=== PATIENT | female | born 1930 | race Caucasian/White ===

== ENCOUNTER → 2016-04-20 | Outpatient (CLI) | payer BC ==
[~2016-04-20] MED LIST: ALLO100T PO; AMLO-110 PO; CALCTAB5 PO; CELE100C PO; GABA1CAP PO; LEVO50TA PO; LEVO75TA PO; LORA-741 PO; MAGN400T5 PO; OMEP20CA9 PO; POTA20TA16 PO; TRIATAB3 PO
[2016-04-20 16:50] LABS: BASO % 0.1 %; BASO ABS # 0.01 K/uL (0-0.2); COMPLETE YES; EOS % 2.2 %; IG% 0.1 %; LYMPH % 31.6 %; LYMPH ABS # 2.11 K/uL (1.2-3.4); MEAN CELL VOLUME 92.6 fL (80-100); MEAN CORPUSCULAR HEMOGLOBIN 32.6 pg (25-34); MEAN CORPUSCULAR HGB CONC 35.2 g/dl (32-36); MONO % 8.7 %; NEUT % 57.3 %; PLATELET COUNT 292 K/uL (130-400); RED BLOOD COUNT 4.97 M/uL (4.2-5.4); WHITE BLOOD COUNT 6.68 K/uL (4.8-10.8)
[2016-04-20 16:59] LABS: ALT/SGPT 28 U/L (12-78); BLOOD UREA NITROGEN 39 mg/dl (7-18); BUN/CREATININE RATIO 27.9 (10-20); CALCIUM 9.5 mg/dl (8.5-10.1); CARBON DIOXIDE 29 mmol/L (21-32); CHLORIDE 100 mmol/L (98-107); GLUCOSE 106 mg/dl (70-99); POTASSIUM 3.6 mmol/L (3.5-5.1); SODIUM 141 mmol/L (136-145); URIC ACID 4.9 mg/dl (2.6-7.2)
[2016-04-20 17:10] LABS: ALB/GLOB RATIO 1.1 (0.9-2); ALKALINE PHOSPHATASE 107 U/L (45-117); AST/SGOT 25 U/L (15-37)
== END | disposition home or self-care (01) ==
LOC: C.LABBC 11:26
PROVIDERS: ATTEND Internal Medicine
DX: N18.3 Chronic kidney disease, stage 3 (moderate) (principal); E03.9 Hypothyroidism, unspecified; M10.9 Gout, unspecified

== ENCOUNTER → 2016-09-12 | Outpatient (CLI) | payer BC ==
[2016-09-12 10:53] LABS: HEMATOCRIT 44.9 % (37-47); MEAN CELL VOLUME 93.5 fL (80-100); MEAN CORPUSCULAR HEMOGLOBIN 32.7 pg (25-34); MEAN PLATELET VOLUME 11.5 fL (7.4-10.4); PLATELET COUNT 275 K/uL (130-400); WHITE BLOOD COUNT 5.51 K/uL (4.8-10.8)
[2016-09-12 11:38] LABS: ALT/SGPT 28 U/L (12-78); AST/SGOT 25 U/L (15-37); BLOOD UREA NITROGEN 31 mg/dl (7-18); BUN/CREATININE RATIO 22.1 (10-20); CALCIUM 9.2 mg/dl (8.5-10.1); CARBON DIOXIDE 30 mmol/L (21-32); CHLORIDE 102 mmol/L (98-107); GLUCOSE 99 mg/dl (70-99); POTASSIUM 3.8 mmol/L (3.5-5.1); SODIUM 139 mmol/L (136-145)
[2016-09-12 11:50] LABS: CHOLESTEROL 250 mg/dl (0-200); CHOLESTEROL/HDL RATIO 3.1; HDL CHOLESTEROL 81 mg/dl; LDL CHOLESTEROL CALCULATED 135 mg/dl; TRIGLYCERIDES 169 mg/dl (0-150); VERY LOW DENSITY LIPOPROT CALC 34 mg/dl
--- NOTE | 2016-09-18 11:30 | CODING QUERY MEDICAL NECESSITY ---
SUPPORTING DIAGNOSIS NEEDED Dr. Wiley, A supporting diagnosis is required for the test/procedure performed on this patient in order for us to be reimbursed by the patient's insurance. Please provide a supporting diagnosis for the following test/procedure listed below next to the test name along with your signature. *If there is no additional diagnosis for this patient that would support the following test/procedure please document that below next to the test/procedure. Test(s)/Procedure(s) that require a supporting diagnosis: * ([id number]) B12 VITAMIN LEVEL DIAGNOSIS: DATE OF SERVICE: 09/12/16 Provider Signature: Date: Thank you Christopher Ortiz [facility] Information Management Once completed, please kindly fax back to [phone] For questions please call [phone]
== END | disposition home or self-care (01) ==
LOC: C.LABBC 08:59
PROVIDERS: ATTEND Internal Medicine
DX: E78.5 Hyperlipidemia, unspecified (principal); E83.42 Hypomagnesemia; E03.9 Hypothyroidism, unspecified; G62.9 Polyneuropathy, unspecified; N18.3 Chronic kidney disease, stage 3 (moderate)

== ENCOUNTER → 2016-10-31 | Outpatient (CLI) | payer BC ==
--- NOTE | 2016-10-31 15:44 | MAMMOGRAPHY REPORT ---
BILATERAL DIGITAL SCREENING MAMMOGRAM WITH CAD: 10/31/2016 CLINICAL HISTORY: Routine screening. Patient has no complaints. TECHNIQUE: Bilateral CC and MLO views were obtained. Current study was also evaluated with a Compute r Aided Detection (CAD) system. COMPARISON: Comparison is made to exams dated: 06/21/2015 mammogram, 10/05/2014 mammogram, 03/23/2014 ma mmogram, 09/18/2013 mammogram, 03/27/2013 mammogram, and 03/19/2013 mammogram - [facility] nter. BREAST COMPOSITION: There are scattered areas of fibroglandular density in both breasts. FINDINGS: There is a focal area of architectural distortion in the 11:30 to 12:00 right breast, whic h appears stable on all available prior mammograms dating back to at least 12/04/2007, likely represe nting an area of prior surgery. 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 Although they are slightly increased comparing to more remote mammograms, there are stable compared to last years mammograms. No new suspicious grouping or cluster of microcalcifications is currently seen. No obvious new mass or unexpected architectural distortion. IMPRESSION: ACR BI-RADS CATEGORY 2: BENIGN There is no mammographic evidence of malignancy. A 1 year screening mammogram is recommended. The pa tient will receive written notification of the results. Approximately 10% of breast cancers are not detected with mammography. A negative mammographic report should not delay biopsy if a clinically suggestive mass is present. Olya Cazares M.D. ay/:10/31/2016 14:26:58 Plastic Maker: Simran MEDINA(R)(M)(BD), [facility] letter sent: Normal 1/2 BI-RADS Code: ACR BI-RADS Category 2: Benign
== END | disposition home or self-care (01) ==
LOC: C.MAMM 11:24
PROVIDERS: ATTEND Internal Medicine
DX: Z12.31 Encounter for screening mammogram for malignant neoplasm of breast (principal)

== ENCOUNTER → 2017-01-28 | Outpatient (CLI) | payer BC ==
[2017-01-28 13:25] LABS: BASO % 0.6 %; BASO ABS # 0.04 K/uL (0-0.2); COMPLETE YES; EOS % 3.4 %; HEMATOCRIT 44.9 % (37-47); IG% 0.3 %; LYMPH % 34.5 %; LYMPH ABS # 2.46 K/uL (1.2-3.4); MEAN CORPUSCULAR HEMOGLOBIN 33.5 pg (25-34); MEAN CORPUSCULAR HGB CONC 36.1 g/dl (32-36); MEAN PLATELET VOLUME 11.2 fL (7.4-10.4); MONO % 9.4 %; NEUT % 51.8 %; PLATELET COUNT 332 K/uL (130-400); RED BLOOD COUNT 4.83 M/uL (4.2-5.4); WHITE BLOOD COUNT 7.14 K/uL (4.8-10.8)
[2017-01-28 16:19] LABS: ALT/SGPT 31 U/L (12-78); AST/SGOT 28 U/L (15-37); BLOOD UREA NITROGEN 36 mg/dl (7-18); BUN/CREATININE RATIO 25.9 (10-20); CALCIUM 9.5 mg/dl (8.5-10.1); CARBON DIOXIDE 28 mmol/L (21-32); CHLORIDE 101 mmol/L (98-107); GLUCOSE 106 mg/dl (70-99); POTASSIUM 3.5 mmol/L (3.5-5.1); SODIUM 138 mmol/L (136-145)
[2017-01-28 16:22] LABS: ALKALINE PHOSPHATASE 110 U/L (45-117)
== END | disposition home or self-care (01) ==
LOC: C.LABBC 10:50
PROVIDERS: ATTEND Internal Medicine
DX: N18.3 Chronic kidney disease, stage 3 (moderate) (principal)

== ENCOUNTER → 2017-08-01 | Outpatient (CLI) | payer BC ==
[~2017-08-01] MED LIST changes: +GABA100C13 PO; -GABA1CAP PO; +POTA-639 PO; -POTA20TA16 PO
[2017-08-01 10:40] LABS: HEMATOCRIT 45.9 % (37-47); MEAN CELL VOLUME 93.5 fL (80-100); MEAN CORPUSCULAR HEMOGLOBIN 32.6 pg (25-34); MEAN CORPUSCULAR HGB CONC 34.9 g/dl (32-36); MEAN PLATELET VOLUME 11.5 fL (7.4-10.4); PLATELET COUNT 253 K/uL (130-400); RED CELL DISTRIBUTION WIDTH CV 14.6 % (11.5-14.5); WHITE BLOOD COUNT 6.74 K/uL (4.8-10.8)
[2017-08-01 10:50] LABS: ALBUMIN 3.8 gm/dl (3.4-5.0); ALT/SGPT 29 U/L (12-78); AST/SGOT 24 U/L (15-37); BLOOD UREA NITROGEN 31 mg/dl (7-18); CALCIUM 9.3 mg/dl (8.5-10.1); CARBON DIOXIDE 32 mmol/L (21-32); CHOLESTEROL 212 mg/dl (0-200); CREATININE 1.54 mg/dl (0.60-1.20); GLUCOSE 105 mg/dl (70-99); POTASSIUM 3.4 mmol/L (3.5-5.1); SODIUM 138 mmol/L (136-145)
[2017-08-01 11:00] LABS: ALKALINE PHOSPHATASE 106 U/L (45-117); LDL CHOLESTEROL CALCULATED 105 mg/dl; TOTAL PROTEIN 7.5 gm/dl (6.4-8.2)
== END | disposition home or self-care (01) ==
LOC: C.LABBC 08:49
PROVIDERS: ATTEND Internal Medicine
DX: N18.3 Chronic kidney disease, stage 3 (moderate) (principal); E03.9 Hypothyroidism, unspecified; E78.5 Hyperlipidemia, unspecified; E83.42 Hypomagnesemia

== ENCOUNTER → 2017-11-01 | Outpatient (CLI) | payer BC ==
[~2017-11-01] MED LIST changes: -AMLO-110 PO; +AMLO5TAB3 PO; +GABA-1693 PO; -GABA100C13 PO
--- NOTE | 2017-11-04 07:43 | MAMMOGRAPHY REPORT ---
BILATERAL DIGITAL SCREENING MAMMOGRAM TOMOSYNTHESIS WITH CAD: 11/01/2017 CLINICAL HISTORY: Routine screening. Patient has no complaints. TECHNIQUE: The study was acquired using full field digital technology and interpreted from soft copy. Breast tomosynthesis in addition to standard 2D mammography was performed. Current study was also ev aluated with a Computer Aided Detection (CAD) system. COMPARISON: Comparison is made to exams dated: 10/31/2016 mammogram, 06/21/2015 mammogram, 10/05/2014 ma mmogram, 03/23/2014 mammogram, 09/18/2013 mammogram, and 03/27/2013 mammogram - [facility]ter. BREAST COMPOSITION: There are scattered areas of fibroglandular density in both breasts. FINDINGS: No suspicious masses, calcifications, or areas of architectural distortion are noted in either breast . There has been no significant interval change compared to prior exams. There is stable postsurgica l architectural distortion in the right lateral breast, stable dating back to at least the 2007 exam. Bilateral benign-appearing calcifications and bilateral asymmetries are not significantly changed. IMPRESSION: BIRADS CATEGORY 2: BENIGN There is no mammographic evidence of malignancy. A 1 year screening mammogram is recommended.( 019) The patient will receive written notification of the results. Some breast cancers are not detected with mammography. A negative mammographic report should not sumaya y biopsy if a clinically suggestive mass is present. Karis Story M.D. /:11/01/2017 13:42:44 Chronic Specialist: RT Pierre(Norris)(Armen)(BD), [facility] letter sent: Normal 1/2 BI-RADS Code: ACR BI-RADS Category 2: Benign
== END | disposition home or self-care (01) ==
LOC: C.MAMM 11:18
PROVIDERS: ATTEND Internal Medicine
DX: Z12.31 Encounter for screening mammogram for malignant neoplasm of breast (principal)

== ENCOUNTER 2020-01-12 08:42 | Observation (INO) ==
--- NOTE | 2019-12-25 13:48 | PAT Medication Instructions ---
Medication Instructions Date of Service December 25, 2019 Home Medications Medication Instructions Recorded potassium chloride 20 mEq 20 meq PO BID #180 tab 09/24/19 tablet,extended release calcium carbonate 500 mg calcium (1,250 mg) tablet 500 mg PO QAM cholecalciferol (vitamin D3) 25 mcg (1,000 unit) capsule 1,000 units PO QAM magnesium oxide 400 mg PO QAM potassium chloride 20 mEq tablet,extended release 20 meq PO BID allopurinol 200 mg PO QPM amlodipine 10 mg PO QAM levothyroxine 75 mcg PO QAM omeprazole 20 mg PO QAM PRN psyllium husk [Metamucil] 1 tbsp PO DAILY PRN triamterene-hydrochlorothiazid 1 cap PO QAM DO NOT take the morning of surgery calcium carbonate 500 mg calcium (1,250 mg) tablet 500 mg PO QAM cholecalciferol (vitamin D3) 25 mcg (1,000 unit) capsule 1,000 units PO QAM magnesium oxide 400 mg PO QAM potassium chloride 20 mEq tablet,extended release 20 meq PO BID psyllium husk [Metamucil] 1 tbsp PO DAILY PRN triamterene-hydrochlorothiazid 1 cap PO QAM Take morning of surgery With a small sip of water, OTHERWISE NOTHING TO EAT OR DRINK AFTER MIDNIGHT: amlodipine 10 mg PO QAM levothyroxine 75 mcg PO QAM omeprazole 20 mg PO QAM PRN (if needed) Take evening before surgery potassium chloride 20 mEq tablet,extended release 20 meq PO BID allopurinol 200 mg PO QPM psyllium husk [Metamucil] 1 tbsp PO DAILY PRN (if needed) Other Notes If you have any questions please call us at [phone] or [phone] or [phone] or [phone]
--- NOTE | 2019-12-28 14:05 | Anesthesiology Consultation ---
Date of Service December 28, 2019 Assessment & Plan (1) Encounter for pre-operative examination: - Hx CKD: known hx of CKD stage III. Preop labs with creatinine 1.78 (GFR 25.0). Creatinine appears worsened from baseline. Labs forwarded to PCP. Per PCP response 12/28/19, PCP will recheck BMP next week. Awaiting repeat labs ([facility]). - Preop EKG: ST with frequent PVCs/septal infarct. Appears similar to previous EKG 2013. No available/recent echo/stress test. Will arrange preop cardiology evaluation. - Per assessment on 12/27: Uses PPE. Travel screen- Son will be visiting from prior to surgery (from [place], [place]). Advised patient to check prior to his travel that [place] is not a travel restricted states from [place] and to follow COVID precaution guidelines. No COVID-19 positive contacts or current COVID-19 related symptoms. Surgeon arranging preop COVID testing (scheduled 01/06; [facility]). Awaiting results. Chart Review Chart Review: Patient seen in Pre Admission Testing Teaching & Discussion Pre-Anesthesia Teaching/Discussion Notes: Instructed NPO after midnight before surgery,except medications with 15 cc of water. Medication instructions provided according to the PAT guidelines. History Surgery Operation Date: 01/12/20 09:00 Proposed Procedures p Right Total Knee Arthroplasty - Cristian Lomas MD Height/Weight Height: 5 ft 2.5 in Weight: 60.6 kg Allergies Allergy/AdvReac Type Severity Reaction Status Date / Time oxycodone Allergy Intermediate mouth Verified 12/28/19 16:02 soreness, extreme dry mouth NSAIDS (Non-Steroidal AdvReac Severe decreased Verified 12/28/19 16:02 Anti-Inflamma kidney function celecoxib [From Celebrex] AdvReac decreased Verified 12/28/19 16:02 kidney function cephalexin [From Keflex] AdvReac dry Mucus Verified 12/28/19 16:02 Membranes Stargazer azucena Allergy Severe Uncoded 12/25/19 11:57 ACCUPRINE Allergy Intermediate rash Uncoded 12/28/19 16:02 Medications Home Medications Medication Instructions Recorded Confirmed Last Taken calcium carbonate 500 mg calcium 500 mg PO QAM tab 12/12/18 12/25/19 03/06/19 (1,250 mg) tablet cholecalciferol (vitamin D3) 25 1,000 units PO QAM cap 12/16/18 12/25/19 03/06/19 mcg (1,000 unit) capsule magnesium oxide 400 mg PO QAM 03/03/19 12/25/19 03/06/19 potassium chloride 20 mEq 20 meq PO BID #180 tab 09/24/19 12/25/19 Unknown tablet,extended release allopurinol 200 mg PO QPM 12/25/19 12/25/19 Unknown amlodipine 10 mg PO QAM 12/25/19 12/25/19 Unknown levothyroxine 75 mcg PO QAM 12/25/19 12/25/19 Unknown omeprazole 20 mg PO QAM PRN 12/25/19 12/25/19 Unknown psyllium husk [Metamucil] 1 tbsp PO DAILY PRN 12/25/19 12/25/19 Unknown triamterene-hydrochlorothiazid 1 cap PO QAM 12/25/19 12/25/19 Unknown Past Medical History Medical History Anxiety GERD (gastroesophageal reflux disease) controlled Gout H/O esophageal spasm History of squamous cell carcinoma Hyperlipidemia Hypertension + white coat HTN Hypothyroidism Osteoarthritis Osteopenia Peripheral neuropathy Spinal stenosis Stage III chronic kidney disease with flutuating creatinine Exercise / Class Metabolic Activity II 4-5 Yardwork/Stairs/Walk up hill (one flight of stairs (no chest pain, no sob)) Past Family History Family History Brother Diabetes Father Myocardial infarction Mother Skin cancer Sister Stroke syndrome Cancer Other No family history of adverse response to anesthesia Denies family history of Ovarian cancer Breast cancer Congenital kidney disease Past Surgical History Surgical History H/O breast biopsy H/O colonoscopy H/O dilation and curettage H/O neck surgery ROM WNL H/O oral surgery History of ankle surgery Rt History of cardiac cath 1998 - abn stress test - [facility] - no stents/angioplasty History of cataract surgery History of colonoscopy History of Mohs micrographic surgery for skin cancer History of repair of rotator cuff Rt History of 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 Physical Exam Vital Signs VITALS BP 147/66 P 102 TEMP 98.4 SP02 96%RA RESP 18 PHYSICAL Full neck and c-spine range of motion. Full TMJ range of motion. TMD 2.5 finger breaths Mallampati Score 1 Dentition: intact, + several crowns Lungs: clear throughout to auscultation Cardiac: regular rate, irregular rhythm, no murmurs noted Spine: normal Carotid arteries: negative bruit Extremities: left ankle non-pitting edema s/p left ankle surgery (chronic) Testing Laboratory Results 12/28/19 14:25 12/28/19 14: PT 10.5 Seconds (9.0-12.0) 12/28/19 14: INR 1.0 (0.9-1.1) 12/28/19 14: APTT 28.1 Seconds (21.0-31.0) 12/28/19 14:25 Blood Type O Negative 12/28/19 14: Antibody Screen NEGATIVE 12/28/19 14:25 Electrocardiogram Date: 12/28/19 ST with frequent PVC's at 112bpm. SELINA. Septal infarct, age undetermined. unconfirmed report. Of note, 01/29/[address] [facility] [address] at 116bpm with frequent PVC's and fusion complexes + septal infarct. Chest X-Ray Date: 12/28/19 FINDINGS: Unchanged mild interstitial coarsening. Cardiomediastinal and hilar silhouettes are within normal limits. Calcified plaque of the thoracic aortic arch. No pneumothorax, pleural effusion, airspace consolidation or overt pulmonary edema. Mild hyperinflation with diaphragmatic flattening. Degenerative changes of the shoulders and spine. Round peripherally sclerotic lucencies of the right humeral head suggestive of prior hardware removal. IMPRESSION: No acute process.
--- NOTE | 2019-12-28 15:00 | XRay Report ---
XR chest Pre-admission PA/Lat HISTORY: 89 years-old Female pat preoperative exam. No acute chest complaints COMPARISON: Chest radiographs 06/29/2013 TECHNIQUE: PA and lateral views of the chest FINDINGS: Unchanged mild interstitial coarsening. Cardiomediastinal and hilar silhouettes are within normal mott its. Calcified plaque of the thoracic aortic arch. No pneumothorax, pleural effusion, airspace consol idation or overt pulmonary edema. Mild hyperinflation with diaphragmatic flattening. Degenerative bradly nges of the shoulders and spine. Round peripherally sclerotic lucencies of the right humeral head sug gestive of prior hardware removal. IMPRESSION: No acute process. ACT 112: Negative or not required by law. The above report was generated using voice recognition software. It may contain grammatical, syntax o r spelling errors. Electronically signed by: Vasiliy Smart M.D. 12/28/2019 2:59 PM
[2019-12-28 15:49] LABS: Basophils # (auto) 0.02 K/uL (0-0.2); Basophils % (auto) 0.2 %; Eosinophils # (auto) 0.06 K/uL (0-0.5); Eosinophils % (auto) 0.6 %; Hematocrit (blood only) 44.3 % (37-47); Hemoglobin 15.7 g/dL (12.0-16.0); Immature Granulocytes # (auto) 0.02 K/uL (0.00-0.02); Immature Granulocytes % (auto) 0.2 %; Lymphocytes # (auto) 2.38 K/uL (1.2-3.4); Lymphocytes % (auto) 23.4 %; Mean Corpuscular Hemoglobin 32.8 pg (25-34); Mean Corpuscular Hgb Conc 35.4 g/dL (32-36); Mean Corpuscular Volume 92.5 fL (80-100); Mean Platelet Volume 12.1 fL (7.4-10.4); Monocytes % (auto) 6.9 %; Neutrophils # (auto) 6.99 K/uL (1.4-6.5); Neutrophils % (auto) 68.7 %; Platelet Count 339 K/uL (130-400); RDW Coefficient of Variation 13.9 % (11.5-14.5); Red Blood Count 4.79 M/uL (4.2-5.4); White Blood Count 10.17 K/uL (4.8-10.8)
[2019-12-28 16:01] LABS: BUN Creatinine Ratio 21.1 (10-20); Creatinine Clr Calc Pharmacy 17.7 ml/min; Potassium 3.7 mmol/L (3.5-5.1)
[2019-12-28 16:05] LABS: Partial Thromboplastin Time 28.1 Seconds (21.0-31.0); Prothrombin Time 10.5 Seconds (9.0-12.0)
--- NOTE | 2019-12-29 15:05 | Electrocardiogram Report ---
Test Reason : Blood Pressure : / mmHG Vent. Rate : 112 BPM Atrial Rate : 112 BPM P-R Int : 178 ms QRS Dur : 080 ms QT Int : 350 ms P-R-T Axes : 077 009 071 degrees QTc Int : 477 ms Sinus tachycardia with frequent Premature ventricular complexes Fusion complexes Right atrial enlargement Septal infarct , age undetermined Abnormal ECG When compared with ECG of 27-JUN-2018 14:04, Septal infarct is now Present Confirmed by Noe Tadeo ([id number]) on 12/29/2019 3:04:46 PM Referred By: Cristian Lomas Confirmed By:Noe Tadeo
--- NOTE | 2020-01-09 14:54 | History and Physical Report ---
DATE OF ADMISSION: 01/12/2020 CHIEF COMPLAINT: Right knee pain, discomfort and swelling. HISTORY OF PRESENT ILLNESS: The patient is an 89-year-old fairly active, independent female who was referred to me by my partner, Dr. Daily, for treatment of her right knee. She has about a year history of gradually and progressively increasing right knee pain and discomfort that dates back to a fall. This was about a year or so ago. Since then, she has got progressive pain, discomfort and swelling in her knee that has been unresponsive to conservative care. She has had a couple of courses of physical therapy as well as aspirations and injections, which do not seem to help much. She has been using a cane to get around due to the pain. She feels like her knee is unstable. She is having difficulty maintaining an active lifestyle and would like to have her knee fixed. PAST MEDICAL HISTORY: Significant for, 1. Unspecified nondiabetic neuropathy. 2. Hypothyroidism. 3. Hypertension. 4. Elevated cholesterol. 5. Chronic underlying kidney disease with baseline creatinine about 1.7. 6. Vitamin D deficiency. PAST SURGICAL HISTORY: Includes, 1. Breast biopsy. 2. Colonoscopy. 3. Oral surgery. 4. Neck surgery. 5. Ankle surgery. 6. Cataract surgery. 7. Tonsillectomy. 8. Shoulder surgery. ALLERGIES: OXYCODONE, WHICH CAUSES MOUTH DRYNESS. ALSO, REPORTS AN NSAID ALLERGY, BUT IT IS DUE TO HER IMPAIRED RENAL FUNCTION. SHE REPORTS AN ALLERGY TO CEPHALEXIN, WHICH CAUSES DRY MUCOUS MEMBRANES. CURRENT MEDICINES: Include, 1. Allopurinol. 2. Amlodipine. 3. Calcium carbonate. 4. Vitamin D3. 5. Kenalog. 6. Levothyroxine. 7. Magnesium oxide. 8. Omeprazole. 9. Potassium chloride. 10. Triamterene/hydrochlorothiazide. SOCIAL HISTORY: Significant for an 89-year-old female. She is quite active. She does not smoke. Rare alcohol intake. FAMILY HISTORY: Noncontributory. REVIEW OF SYSTEMS: Negative for diabetes. Denies any current chest pain or shortness of breath. No history of DVT or PE. She does have some underlying renal dysfunction. She did recently just have a stress test, which the results are pending. PHYSICAL EXAMINATION: GENERAL: Shows a pleasant elderly female. Looks to be in excellent health. HEENT: Benign. NECK: Supple, no lymphadenopathy. LUNGS: Clear to auscultation. HEART: Has a regular rate and rhythm. ABDOMEN: Soft, nontender, nondistended. EXTREMITIES: Grossly neurovascularly intact except as follows: Examination of the right knee reveals the patient walks with the use of a cane. She has got a fairly large knee joint effusion. She has got valgus alignment to her knee, which is increased with weightbearing. Range of motion about 5 degrees short of full extension to 120 degrees of flexion. There is no instability. No pain with hip motion. X-RAYS: X-rays of the right knee were reviewed from previously. It shows advanced right knee lateral compartment DJD. She has got complete loss of her lateral joint space. 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 She has failed all conservative measures and would like to have her knee fixed. PLAN: We talked about treatment options. We are going to proceed with right total knee replacement. The risks and benefits of this procedure were explained to the patient including but not limited to DVT, PE, , infection, neurological injury, vascular injury, bleeding problems, pain, limited range of motion, stiffness, failure to relieve her symptoms, incomplete relief of symptoms, need for further surgery in the future, fracture, leg length inequality, nerve palsy, persistent pain, etc. The patient understands and desires to proceed. Informed consent was obtained. As far as DVT prophylaxis, we will use TEDs and a baby aspirin twice a day. We will have to hold all other NSAIDs due to her renal dysfunction. She is hoping to be discharged to home with some home health and her son and family are going to be helping to take care of her for the first couple of weeks.
[2020-01-10 03:46] LABS: SARS CoV2 RNA (COVID-19) NOT DETECTED (NOT DETECTED)
[~2020-01-12 08:42] MED LIST changes: +ACETAMINOPHEN 500 MG TAB PO SCH; -ALLO100T PO; -AMLO5TAB3 PO; +BUPIVACAINE 0.5 % 5 MG/1 ML PF 10ML VIAL ONE; +BUPIVACAINE LIPOSOME/PF 266 MG, BUPIVACAINE/EPINEPHRINE 50 ML, SODIUM CHLORIDE 0.9% 30 ... INFIL SCH; -CALCTAB5 PO; +CEFAZOLIN 2000MG 2,000 MG/15 ML SYR IV SCH; -CELE100C PO; +FAMOTIDINE 20 MG TAB PO SCH; -GABA-1693 PO; +GABAPENTIN 300 MG CAP PO SCH; -LEVO50TA PO; -LEVO75TA PO; -LORA-741 PO; +LR 60ML/HR IV SCH; -MAGN400T5 PO; -OMEP20CA9 PO; -POTA-639 PO; +ROPIVACAINE 0.5% 5 MG/ML 30 ML VIAL ONE; +SODIUM CHLORIDE 0.9% 1000ML IV SCH; +TRANEXAMIC ACID 1,000 MG **IV Intra-op IV SCH; -TRIATAB3 PO
--- NOTE | 2020-01-12 09:00 | History & Physical Bridge Note ---
Date of Service January 12, 2020 History & Physical Bridge Note I have examined the patient, reviewed the History & Physical and in the interval since the performance of the History & Physical I have noted the following changes of clinical significance: no changes noted
[2020-01-12] MEDS ORDERED: MIDAZOLAM HCL 1 MG/ML 2ML VIAL ONE (10:10)
[2020-01-12] MEDS ORDERED: PROPOFOL IV EMULSION 10 MG/ML 20 ML VIAL IV ONE ×2 (10:11→12:54)
[2020-01-12] MEDS ORDERED: ePHEDrine sulfate 50 MG/ML AMP IV PRN (10:36)
[2020-01-12] MEDS ORDERED: ONDANSETRON INJ 2 MG/ML 2 ML VIAL IV PRN ×2 (10:36→14:09)
[2020-01-12] MEDS ORDERED: HYDROmorphone INJ 1 MG/ML SYRINGE IV PRN (10:36)
[2020-01-12] MEDS ORDERED: ATROPINE SULFATE 0.1 MG/ML 10ML SYR IV PRN (10:36)
[2020-01-12] MEDS ORDERED: SODIUM CHLORIDE 0.9% PF 50 ML VIAL ONE (10:47)
[2020-01-12] MEDS ORDERED: BUPIVACAINE/EPINEPHRINE 0.25% 1:200,000 30 ML VIAL ONE (10:47)
[2020-01-12] MEDS ORDERED: BACITRACIN INJ 50,000 UNIT VIAL ONE (10:48)
[2020-01-12] MEDS ORDERED: BUPIVACAINE LIPOSOME 1.3% 266 MG/20 ML VIAL ONE (10:48)
--- NOTE | 2020-01-12 12:54 | Post Operative Brief Note ---
PG Immediate Post Op with CF Date of Surgery January 12, 2020 Pre & Post Diagnosis Operation Date: 01/12/20 10:55 Pre-Op Diagnosis: Right Knee Degenerative Joint Disease Post-Op Diagnosis: Right Knee Degenerative Joint Disease I identified the patient and participated in the time-out.: Yes Procedure Operation Date: 01/12/20 10:55 Actual Procedures p Right Total Knee Arthroplasty(Right) - Cristian Lomas MD Surgeon Cristian Lomas MD Solderer Barrel Ribs Kayla, PAC Estimated Blood Loss 50 Findings Consistent with Post-Op Diagnosis Fluids 1300 cc Specimens Specimen Description: A. Right Knee Bone and Tissue Drains Ojeda Catheter (16fr ojeda inserted by Chato Garza PA prior to procedure start without difficulty. output monitored by anesthesia intraop) Anesthesia Type Spinal MAC Complications none Disposition Accompanied Patient To Recovery: No Disposition: Recovery Room
[2020-01-12] MEDS ORDERED: ePHEDrine sulfate 50 MG/ML SYR ONE (12:55)
--- NOTE | 2020-01-12 13:09 | Operative Report ---
Post Operative Report Pre & Post Diagnosis Operation Date: 01/12/20 10:55 Pre-Op Diagnosis: Right Knee Degenerative Joint Disease Post-Op Diagnosis: Right Knee Degenerative Joint Disease I identified the patient and participated in the time-out.: Yes Procedure Operation Date: 01/12/20 10:55 Actual Procedures p Right Total Knee Arthroplasty(Right) - Cristian Lomas MD Surgeon Cristian Lomas MD Machine Quilt Stuffer Kayla, PAC Estimated Blood Loss 50 Findings Consistent with Post-Op Diagnosis Operative findings revealed advanced right knee DJD with extensive grade 4 [id number] disease and eburnation of the lateral femoral condyle particular the posterior lateral portion and lateral tibial plateau. Most severe disease in the lateral femoral condyle. She did have a valgus deformity to her knee with a large knee joint effusion. She had grade 3-4 patellofemoral disease as well. Fluids 1300 cc. Specimens Right knee sent for pathology. Drains None. Anesthesia Type Spinal MAC Complications none Disposition Accompanied Patient To Recovery: No Disposition: Recovery Room Indications Patient is an 89-year-old very active independent elderly female who is had a 1 year history of gradually progressive increasing right knee pain discomfort and recurrent swelling. She failed extensive conservative treatment. X-rays show progressive loss of her lateral joint space. She has knee was very unstable as well. She is concerned about falling. She failed all conservative care and e lected proceed with surgical treatment. Description of Procedure Operative implants consist of: 1. Biomet Vanguard size 62.5 right posterior stabilized femoral component. 2. Biomet size 63 tibial tray. 3. 12 mm posterior stabilized polyethylene insert. 4. 28 x 8 all poly-patella. The patient was taken the operating identified and placed on the operating table supine position protectors were properly padded. IV antibiotics arrived by anesthesia team. A spinal anesthetic and abductor canal block had provided in the holding area. Nash catheter was placed in sterile fashion. Right factor was then placed in the right lower extremities and prepped and draped in usual sterile fashion. The right leg was elevated exsanguinated with use of an Esmarch and turns placed at 300 mmHg. An anterior approach to the right knee was then performed through longitudinal incision centered over the patella. Sharp dissection was got through subcutaneous tissue down the extensor mechanism. A medial parapatellar arthrotomy incision was made. Some subperiosteal dissection was carried out medially. The fat pad was resected from each patella tendon. Lateral patellofemoral ligament was released. Patella was subluxated laterally and the knee was flexed. The osteophytes were taken off the distal femur. The ACL and PCL were then released in the distal femur and the tibia subluxate anteriorly. The external tibial alignment jig was then placed in the interface the tibia and adjusted 12 mm medially. Proximal tibial cut was made to remove about 4 to 5 mm of bone from the medial side. Tibia is then sized to a size 63. Attention drawn the femur. The distal femur was entered with a sharp drop with intramedullary canal was suction. A right 5 degree valgus cutting guide was placed. The distal femoral cutting block was pinned in place but distal femoral cut was made to take an additional 3 mm bone off distal femur. The femur was then sized to a size 62.5. We did downsize this about a half a size. The AP cutting block was pinned parallel to the epicondylar axis which was 4 degrees of external rotation. The anterior cut, anterior chamfer, posterior cut, posterior chamfer cuts were made. Box cutting guide was placed in just slight lateral and the box cut was made. The knee was brought under full extension and some the IT band and posterior lateral capsule were then released in order to equalize the extension gap. I then flexed the knee again to release the popliteus to equalize the flexion gap. Trial femoral component was placed. The tibial tray was pinned in maximum external rotation and the drill and stem punch were used to create defect in proximal tip for the tibial tray. Knee was then trialed and the 12 mm insert fit most appropriately. Attention drawn the patella. The patella was cleaned of all soft tissues. Patella thickness measured 20 mm and was cut down to 13. Was sized to a size 28 patella. The lug holes were drilled for the 28 patella. Lateral osteophytes removed. Patella button was placed. Knee was taken through range of motion patella tracked nicely with no thumbs test. Attention drawn to place the permanent components. Nupathe all trial components were removed. Bone plug was placed in the disc femur limit blood loss put a double batch Pal[place]os G cement was mixed. A Biomet Vanguard size 62.5 right posterior stabilized femoral component, size 63 tibial tray, a 12 mm posterior box polyethylene insert, and a 28 x 8 all poly-patella then cemented in place. Knee was brought on full extension total cement hardened. Final cement check was then performed. The pericapsular tissues were injected with total 100 cc of combination of 20 cc of Exparel, 30 cc normal saline, 50 cc of quarter percent Marcaine with epinephrine. Patient did receive 1 g tranexamic acid. The tourniquet was then let down for final turn time 55 minutes. Hemostasis assured use electrocautery. Extensor Maxon then closed with combination 1 PDS suture #1 Vicryl suture in [id number] fashion. Extensor mechanism checked found to be intact with subcutaneous tissue then closed with 2 Dexon suture in a buried interrupted fashion skin was closed skin marlee. Leg was then cleaned dried a sterile dressing composed Xeroform, 4 x 4's, sterile ABD pad, sterile cast padding, Andrew bandage were applied. Patient then transferred to the recovery room in stable condition. Patient tolerated procedure well and there were no complications. Nathaniel Garza, my physician delivery assistant, was present for the entire procedure. His assistance was essential and required for appropriate patient positioning, prepping and draping, surgical exposure, performing the technical details of the operation, placement the implants, closure of the wound, and placement of the sterile bandage. I attest to the content of the Intraoperative Record and any orders documented therein. Any exceptions are noted below.
--- NOTE | 2020-01-12 13:34 | XRay Report ---
XR knee RT 1 or 2V routine CLINICAL HISTORY: Surgical Post Op COMPARISON: Knee radiographs August 18, 2019. FINDINGS: Alignment of the total right knee arthroplasty is anatomic. There is no fracture or unexpe cted radiopaque foreign body. Skin marlee are present. IMPRESSION: Expected findings following total right knee arthroplasty. ACT 112: Negative or not required by law. Electronically signed by: Rosendo Spann M.D. 01/12/2020 1:33 PM
[2020-01-12] MEDS ORDERED: METOCLOPRAMIDE HCL INJ 5 MG/ML 2 ML VIAL IV PRN (14:09)
[2020-01-12] MEDS ORDERED: ALUMINUM/MAGNESIUM SUSP 30 ML UDC PO PRN (14:09)
[2020-01-12] MEDS ORDERED: MAGNESIUM HYDROXIDE SUSP 30 ML UDC PO PRN (14:09)
[2020-01-12] MEDS ORDERED: PANTOprazole 40 MG TAB PO PRN (14:09)
[2020-01-12] MEDS ORDERED: PSYLLIUM 58.6% POWDER PACKET PO PRN (14:09)
[2020-01-12] MEDS ORDERED: NALOXONE HCL 0.4 MG/1 ML VIAL/CARP IV PRN (14:09)
[2020-01-12] MEDS ORDERED: bisacodyL 10 MG SUPP PR PRN (14:09)
[2020-01-12] MEDS ORDERED: NO NSAIDS SCH (14:09)
[2020-01-12] MEDS ORDERED: TRAMADOL HCL 50 MG TABLET PO PRN (14:09)
[2020-01-12] MEDS ORDERED: SODIUM CHLORIDE 0.9% 1000ML 1,000 ML IV SCH (14:09)
[2020-01-12] MEDS ORDERED: HYDROmorphone INJ 0.5 MG/0.5 ML SYR IV PRN (14:09)
--- NOTE | 2020-01-12 14:25 | Anesthesiology Progress Note ---
Date of Service January 12, 2020 Anesthesia Post Procedure Vital Signs Vital Signs: Temp Pulse Pulse Resp BP BP Pulse Ox 01/12/20 14:10 79 16 124/68 96 01/12/20 13:45 36.4 C L 84 16 121/66 93 01/12/20 13:30 36.6 C 83 16 118/60 94 01/12/20 13:20 84 16 119/73 94 01/12/20 13:10 88 16 120/59 L 97 01/12/20 13:01 36.2 C L 94 H 16 113/56 L 98 01/12/20 10:07 90 18 151/81 H 94 01/12/20 09:17 36.7 C 110 H 18 160/104 H 163/94 H 97 Transfer of Care Handoff Completed per policy Notes Mental Status: alert / awake / arousable Patient Amnestic to Procedure: Yes Nausea / Vomiting: adequately controlled Pain: adequately controlled Airway Patency, RR, SpO2: stable & adequate BP & HR: stable & adequate Hydration State: stable & adequate Neuraxial Anesthesia: was administered and sensory block is resolving Anesthetic Complications: no major complications apparent
[2020-01-12] MEDS: ACETAMINOPHEN 500 MG TAB PO SCH ×2 (16:09→21:09)
--- NOTE | 2020-01-12 16:55 | Progress Notes ---
DATE: 01/12/2020 SUBJECTIVE: An 89-year-old white female postop from right knee replacement. She is doing well. Really not having much pain yet. No chest pain or shortness of breath. Not feeling dizzy or lightheaded. Biggest complaint is she has some back pain from lying in bed. OBJECTIVE: VITAL SIGNS: Temperature 36.4. Vital signs stable. GENERAL: Shows a pleasant elderly female. She is lying in bed, looks pretty comfortable. LUNGS: Clear to auscultation. HEART: Has a regular rate and rhythm. ABDOMEN: Soft, nontender, nondistended. EXTREMITIES: Grossly neurovascularly intact except as follows. Examination of the right leg reveals the leg to be well aligned. Dressing is clean, dry and intact. She can dorsiflex and plantarflex her foot appropriately. She is neurologically intact. X-RAYS: X-rays of the right knee from recovery room were reviewed. It shows a right cemented posterior stabilized total knee arthroplasty. Components looked to be in good position. No signs of problems. ASSESSMENT: An 89-year-old white female postop from right knee replacement, doing pretty well. Pain is controlled. She is neurologically intact. Biggest issue is just back pain. PLAN: We are going to reposition her in bed and make her more comfortable from the back standpoint. We will get her up later on this evening into a chair. We will begin DVT prophylaxis including thigh-high TEDs, SCDs. She will be on aspirin twice a day. She is hoping to be discharged to home with some home health and some family's help eventually. 24 hours of IV antibiotics.
[2020-01-12] MEDS: ASCORBIC ACID 500 MG TAB PO SCH (17:35)
[2020-01-12] MEDS ORDERED: TRANEXAMIC ACID / 0.7% NACL 1,000 MG/100 ML BAG IV SCH (19:00)
[2020-01-12] MEDS: CEFAZOLIN 1000MG 1,000 MG/7.5 ML SYR IV SCH (19:28)
[2020-01-12] MEDS: DOCUSATE SODIUM 100 MG CAP PO SCH (20:31)
[2020-01-12] MEDS: SENNA 8.6 MG TAB PO SCH (20:31)
[2020-01-12] MEDS: POTASSIUM CHLORIDE 20 MEQ TABCR PO SCH (20:32)
[2020-01-12] MEDS: allopurinoL 100 MG TAB PO SCH (20:32)
[2020-01-12] MEDS: ASPIRIN 81 MG ECTAB PO SCH (20:32)
[2020-01-12] MEDS: TAPENTADOL HCL ER 50 MG TABCR PO SCH (20:35)
[2020-01-13] MEDS: CEFAZOLIN 1000MG 1,000 MG/7.5 ML SYR IV SCH (03:45)
[2020-01-13] MEDS: LEVOTHYROXINE SODIUM 75 MCG TABLET PO SCH (06:01)
[2020-01-13] MEDS: ACETAMINOPHEN 500 MG TAB PO SCH ×3 (06:02→21:34)
[2020-01-13 06:07] LABS: Hematocrit (blood only) 40.1 % (37-47); Hemoglobin 13.7 g/dL (12.0-16.0); Mean Corpuscular Hemoglobin 31.6 pg (25-34); Mean Corpuscular Hgb Conc 34.2 g/dL (32-36); Mean Corpuscular Volume 92.4 fL (80-100); Mean Platelet Volume 11.2 fL (7.4-10.4); Platelet Count 262 K/uL (130-400); RDW Coefficient of Variation 14.1 % (11.5-14.5); RDW Standard Deviation 47.5 fL (36.4-46.3); Red Blood Count 4.34 M/uL (4.2-5.4); White Blood Count 9.58 K/uL (4.8-10.8)
[2020-01-13 06:32] LABS: BUN Creatinine Ratio 19.6 (10-20); Calcium 8.6 mg/dl (8.5-10.1); Creatinine Clr Calc Pharmacy 25.2 ml/min; Est GFR (African American) 44.5; Est GFR (Non-African American) 38.4; Potassium 2.6 mmol/L (3.5-5.1)
[2020-01-13] MEDS ORDERED: CALCIUM CARBONATE 1250MG TAB PO SCH (09:00)
[2020-01-13] MEDS ORDERED: POTASSIUM CHLORIDE 20 MEQ TABCR PO ONE ×3 (09:15→22:00)
[2020-01-13] MEDS: TAPENTADOL HCL ER 50 MG TABCR PO SCH ×2 (09:23→21:28)
--- NOTE | 2020-01-13 09:23 | Progress Notes ---
DATE: 01/13/2020 SUBJECTIVE: An 89-year-old white female postop day 1 from right knee replacement. She is doing pretty well. Having some pain but manageable. No chest pain or shortness of breath. Not feeling dizzy or lightheaded. OBJECTIVE: VITAL SIGNS: Temperature 36.5. Vital signs stable. GENERAL: Shows a pleasant elderly female. She is lying in bed, looks pretty comfortable this morning. EXTREMITIES: Examination of the right knee and leg reveals the leg to be well aligned. Dressing is clean, dry and intact. She can dorsiflex and plantarflex her foot appropriately. She is neurologically intact. LABORATORY DATA: Hemoglobin 13.7. Hematocrit 40.1. Electrolytes reveal potassium 2.9. Creatinine stable. ASSESSMENT: An 89-year-old white female postop day 1 from a right knee replacement, doing pretty well. Pain is controlled. Potassium is low and we will supplement that. PLAN: 1. DVT prophylaxis including thigh-high TEDs, SCDs, and aspirin twice a day. 2. PT/OT. Weight bear as tolerated. Right total knee protocol. 3. Pain control, doing well with current pain regimen. 4. Hypokalemia. We will supplement her potassium. 5. Disposition: She is hoping to be discharged home with some home health and family assistance once medically stable and adequately recovered.
[2020-01-13] MEDS: MULTIVITAMIN TAB PO SCH (09:24)
[2020-01-13] MEDS: MAGNESIUM OXIDE 400 MG TAB PO SCH (09:24)
[2020-01-13] MEDS: POTASSIUM CHLORIDE 20 MEQ TABCR PO SCH ×2 (09:24→22:01)
[2020-01-13] MEDS: CHOLECALCIFEROL 1,000 UNITS 25 MCG TAB PO SCH (09:25)
[2020-01-13] MEDS: AMLODIPINE BESYLATE 5 MG TAB PO SCH (09:25)
[2020-01-13] MEDS: ASPIRIN 81 MG ECTAB PO SCH ×2 (09:25→21:35)
[2020-01-13] MEDS: ASCORBIC ACID 500 MG TAB PO SCH ×2 (09:26→16:07)
[2020-01-13] MEDS: DOCUSATE SODIUM 100 MG CAP PO SCH ×2 (09:26→21:36)
[2020-01-13] MEDS: TRIAMTERENE/HCTZ 37.5/25MG CAP PO SCH (10:47)
[2020-01-13] MEDS: allopurinoL 100 MG TAB PO SCH (21:34)
[2020-01-13] MEDS: SENNA 8.6 MG TAB PO SCH (21:36)
[2020-01-14] MEDS: ACETAMINOPHEN 500 MG TAB PO SCH (05:41)
[2020-01-14] MEDS: LEVOTHYROXINE SODIUM 75 MCG TABLET PO SCH (05:41)
[2020-01-14 07:11] LABS: BUN Creatinine Ratio 18.2 (10-20); Calcium 9.8 mg/dl (8.5-10.1); Creatinine Clr Calc Pharmacy 27.6 ml/min; Est GFR (African American) 49.7; Est GFR (Non-African American) 42.9; Potassium 3.1 mmol/L (3.5-5.1)
[2020-01-14] MEDS: ASCORBIC ACID 500 MG TAB PO SCH (07:45)
[2020-01-14] MEDS: ASPIRIN 81 MG ECTAB PO SCH (07:45)
[2020-01-14] MEDS: TRIAMTERENE/HCTZ 37.5/25MG CAP PO SCH (07:46)
[2020-01-14] MEDS: CHOLECALCIFEROL 1,000 UNITS 25 MCG TAB PO SCH (07:46)
[2020-01-14] MEDS: MULTIVITAMIN TAB PO SCH (07:46)
[2020-01-14] MEDS: AMLODIPINE BESYLATE 5 MG TAB PO SCH (07:47)
[2020-01-14] MEDS: MAGNESIUM OXIDE 400 MG TAB PO SCH (07:47)
[2020-01-14] MEDS: DOCUSATE SODIUM 100 MG CAP PO SCH (07:47)
[2020-01-14] MEDS: POTASSIUM CHLORIDE 20 MEQ TABCR PO SCH (07:47)
--- NOTE | 2020-01-14 08:28 | Progress Notes ---
DATE: 01/14/2020 SUBJECTIVE: An 89-year-old white female postop day 2 from right knee replacement. She is doing better. Her pain seems to be getting a little bit better each day. No chest pain or shortness of breath. Not feeling dizzy or lightheaded. OBJECTIVE: VITAL SIGNS: Temperature is 36.9. Vital signs stable. GENERAL: Physical examination shows a pleasant, frail elderly female. She is sitting up in bed and looks more comfortable this morning. EXTREMITIES: Examination of the right leg reveals the leg to be well aligned. Dressing is clean, dry, and intact. She can dorsiflex and plantarflex her foot appropriately. She is neurologically intact. LABORATORY DATA: Electrolytes are improved. Her potassium is still low at 3.1, but improved. ASSESSMENT: An 89-year-old white female postop day 2 from right knee replacement, doing reasonably well. Her pain is controlled. Seems to be getting better daily. Potassium is improved but not completely supplemented and corrected. PLAN: 1. DVT prophylaxis including thigh-high TEDs, SCDs, and aspirin twice a day. 2. PT/OT. Weight bear as tolerated. Right total knee protocol. 3. Pain control, doing well with current pain regimen. 4. Disposition: Plan to discharge to home with some home health likely later today if doing okay and pain controlled. We will continue to supplement her potassium.
[2020-01-14] MEDS ORDERED: POTASSIUM CHLORIDE 20 MEQ TABCR PO ONE (08:30)
[2020-01-14] MEDS ORDERED: CALCIUM CARBONATE 1250MG TAB PO SCH (09:00)
[2020-01-14] MEDS: TAPENTADOL HCL ER 50 MG TABCR PO SCH (09:21)
--- NOTE | 2020-01-18 16:07 | Discharge Summary ---
Date of Service January 18, 2020 Admission HPI Per Admitting Provider Documented in the H & P Admission Exam (Per Admitting) Constitutional Documented in the H & P Discharge Data Consultations 01/12/20 14:09 Consult Case Management - Discharge Planning Routine Procedures Performed Operation Date: 01/12/20 10:55 Actual Procedures p Right Total Knee Arthroplasty(Right) - Cristian Lomas MD Hospital Course (1) Status post total right knee replacement: This patient is a 89 year old female admitted on 01/12/20 and underwent total knee arthroplasty. She tolerated the procedure well and there were no complications. Transferred to the PACU post op and later to the orthopedic floor for further care. She was given ancef for antibiotic prophylaxis. She was also given PETEY stockings, SCDs, and aspirin for DVT prophylaxis. Hemoglobin, hematocrit, and vital signs were monitored during her hospital stay and remained stable. She did have some hypokalemia and was given a potassium supplement. Did not require any blood transfusions. There were no complications during her hospital stay. By post op day #2 the patient was tolerating a regular diet, pain was reasonably controlled with oral pain medicine, and she was participating in physical therapy. On post op day #2 the patient was discharged home and set up with home health care. She was given printed discharge instructions including prescriptions for extra strength tylenol, aspirin, and tramadol. Continue physical therapy, weight bearing as tolerated. Continue PETEY stockings. Follow up approximately 2 weeks post op or sooner if there are problems or concerns. Coding Level of Care Code None Diagnoses Status post total right knee replacement Z96.651
[2020-01-20] MEDS ORDERED: INFLUENZA VACCINE HIGH DOSE 65+ 0.5 ML SYR IM ONE (14:22)
[2020-01-20] MEDS ORDERED: INFLUENZA ADMINISTRATION CHARGE ONE (14:22)
== END 2020-01-14 11:42 | disposition home health service (06) ==
LOC: 3E 08:42 → ASU 08:42